=== PATIENT | female | born 1965 | race Two or more races ===

== ENCOUNTER → 2024-10-25 | Outpatient (CLI) | payer BC, SELFPAY | END | disposition home or self-care (01) | LOC: SLDO 15:47 | PROVIDERS: PCP Family Medicine; Referring Provider Family Medicine; Visit Provider Family Medicine | DX: N39.0 Urinary tract infection, site not specified (principal) | CPT/HCPCS: 87077; 87086; 87186 ==

== ENCOUNTER → 2024-11-15 | Outpatient (CLI) | payer BC, SELFPAY ==
--- NOTE | 2024-11-15 13:00 | XR_ITS ---
Examination: Breast ultrasound complete, bilateral Date and time of exam: November 15, 2024 1314 hours INDICATIONS: Nipple discharge beginning 2 years ago Technique: Real-time grayscale ultrasonographic imaging bilateral breasts, including all 4 quadrants as well as nipple retroareolar and axillary regions. Findings: Sonographic images right breast No cystic or solid mass Sonographic images left breast 1:00 oval mass with cystic change 13 x 6 x 12 mm Bilateral breast implants which appear intact IMPRESSION: BI-RADS Category 3: Probably benign findings One additional 6 month left breast sonogram follow-up is needed to document stability of 1:00 oval mass with cystic change in the left breast
[2024-11-16 17:44] LABS: Follicle Stimulating Hormone 10.51 mIU/mL (See Note)
[2024-11-22 06:52] LABS: Estradiol, Ultrasensitive* 61 pg/mL; Testosterone,Total* 48 ng/dL (2-45)
== END | disposition home or self-care (01) ==
LOC: CDIM 12:56 → COPL 12:57
PROVIDERS: PCP Family Medicine; Referring Provider Surgery; Visit Provider Radiology Diagnostic Radiology
DX: N63.13 Unspecified lump in the right breast, lower outer quadrant (principal); R92.333 Mammographic heterogeneous density, bilateral breasts; N95.1 Menopausal and female climacteric states
CPT/HCPCS: 36415; 76641; 82670; 83001; 84403

== ENCOUNTER → 2024-12-07 | Outpatient (CLI) | payer BC, SELFPAY ==
--- NOTE | 2024-12-07 13:44 | XR_ITS ---
Examination: Abdomen AP single view Technique: AP portable supine abdomen, single view Exam date and time: December 07, 2024 1410 hours INDICATIONS: Right lower abdominal pain beginning 4 years ago. FINDINGS: Moderate to large amounts of stool throughout the colon No obstruction Right abdomen surgical clips No free air IMPRESSION: Moderate to large amounts of stool throughout the colon
[2024-12-07 15:21] LABS: Collection Type, Urine Clean Catch
[2024-12-07 15:42] LABS: Basophils % (Auto) 1 % (0-2.5); Eosinophils # (Auto) 0.1 Thou/mm3 (0.0-0.5); Eosinophils % (Auto) 1 % (0-10); Immature Granulocytes % (Auto) 1 % (0-0); Immature Granulocytes Auto 0.04 Thou/mm3 (0.00-0.00); Lymphocytes # (Auto) 3.2 Thou/mm3 (1.0-4.8); Lymphocytes % (Auto) 43 % (10-50); Mean Corpuscular Hemoglobin 31.4 pg (25.0-35.0); Mean Corpuscular Volume 90 fL (80-100); Monocytes # (Auto) 0.6 Thou/mm3 (0.0-0.8); Monocytes % (Auto) 8 % (0-12); Neutrophils # (Auto) 3.6 Thou/mm3 (1.8-7.7); Neutrophils % (Auto) 47 % (37-80); Nucleated Red Blood Cell % 0 /100 WBC (0); Platelet Count 268 Thou/mm3 (140-440); RDW Standard Deviation 39.4 fL (36.4-46.3); Red Blood Count 4.46 Miln/mm3 (4.00-5.20); White Blood Count 7.6 Thou/mm3 (3.6-11.0)
[2024-12-07 15:51] LABS: Bacteria,Urine 3+; Bilirubin,Urine Negative (Negative); Blood,Urine Negative (Negative); Clarity,Urine Turbid (Clear/Hazy); Color,Urine Yellow (Lt Yel-Yel); Glucose, Urine Negative (Negative); Ketones,Urine 1+ (Negative); Leukocyte Esterase,Urine Negative (Negative); Nitrite,Urine Positive (Negative); Protein,Urine Trace (Neg - Trace); RBC,Urine 5 /hpf (0-3); Specific Gravity,Urine 1.028 (1.001-1.035); Squamous Epithelial Cell,Urine 6 /hpf (0-5); Urobilinogen,Urine Negative mg/dL (0.0-1.0); WBC,Urine 2 /hpf (0-5)
[2024-12-07 15:55] LABS: Alanine Aminotransferase 34 U/L (10-49); Albumin, Serum 4.8 gm/dL (3.5-5.0); Albumin/Globulin Ratio 2.2 (1.2-2.2); Alkaline Phosphatase 65 U/L (46-116); Amylase 68 U/L (30-118); Anion Gap 8 (7-16); Aspartate Amino Transferase 24 U/L (0-34); BUN/Creatinine Ratio 12 Ratio (12-20); Bilirubin,Total 1.7 mg/dL (0.3-1.2); Blood Urea Nitrogen 7 mg/dL (9-23); Calcium 9.8 mg/dL (8.3-10.6); Calcium (Corrected) 9.8 mg/dL (8.5-10.1); Carbon Dioxide 27.9 mMol/L (20.0-31.0); Chloride 101 mMol/L (98-107); Creatinine (Component) 0.6 mg/dL (0.6-1.3); Globulin 2.2 gm/dL (2.3-3.5); Glucose 120 mg/dL (74-106); Lipase 64 U/L (12-53); Osmolality,Calculated 272 (275-295); Sodium 137 mMol/L (136-145); eGFR > 60 See Note
== END | disposition home or self-care (01) ==
LOC: CDIM 13:31 → COPL 14:32
PROVIDERS: PCP Family Medicine; Referring Provider Specialist; Visit Provider Radiology Diagnostic Radiology
DX: K59.00 Constipation, unspecified (principal); K58.8 Other irritable bowel syndrome; R93.5 Abnormal findings on diagnostic imaging of other abdominal regions, including retroperitoneum
CPT/HCPCS: 36415; 74018; 80053; 81001; 82150; 83690; 85025

== ENCOUNTER → 2024-12-20 | Outpatient (CLI) | payer BC, SELFPAY ==
[2024-12-20 10:25] LABS: Basophils % (Auto) 1 % (0-2.5); Eosinophils # (Auto) 0.1 Thou/mm3 (0.0-0.5); Eosinophils % (Auto) 1 % (0-10); Hematocrit 39.9 % (36.0-46.0); Hemoglobin 14.1 g/dL (12.0-16.0); Immature Granulocytes % (Auto) 1 % (0-0); Immature Granulocytes Auto 0.04 Thou/mm3 (0.00-0.00); Lymphocytes # (Auto) 2.8 Thou/mm3 (1.0-4.8); Lymphocytes % (Auto) 34 % (10-50); Mean Corpuscular HGB Conc 35.3 g/dl (31.0-37.0); Mean Corpuscular Hemoglobin 31.8 pg (25.0-35.0); Mean Corpuscular Volume 90 fL (80-100); Monocytes # (Auto) 0.6 Thou/mm3 (0.0-0.8); Monocytes % (Auto) 7 % (0-12); Neutrophils # (Auto) 4.7 Thou/mm3 (1.8-7.7); Neutrophils % (Auto) 57 % (37-80); Nucleated Red Blood Cell % 0 /100 WBC (0); Platelet Count 263 Thou/mm3 (140-440); RDW Standard Deviation 38.9 fL (36.4-46.3); Red Blood Count 4.43 Miln/mm3 (4.00-5.20); White Blood Count 8.3 Thou/mm3 (3.6-11.0)
[2024-12-20 10:29] LABS: Alanine Aminotransferase 31 U/L (10-49); Albumin, Serum 4.5 gm/dL (3.5-5.0); Alkaline Phosphatase 65 U/L (46-116); Anion Gap 8 (7-16); Aspartate Amino Transferase 25 U/L (0-34); BUN/Creatinine Ratio 15 Ratio (12-20); Bilirubin,Total 1.3 mg/dL (0.3-1.2); Blood Urea Nitrogen 9 mg/dL (9-23); Calcium 9.9 mg/dL (8.3-10.6); Calcium (Corrected) 9.9 mg/dL (8.5-10.1); Carbon Dioxide 27.6 mMol/L (20.0-31.0); Cardiac Risk Estimate 2.9 RATIO (3.7-5.6); Chloride 103 mMol/L (98-107); Cholesterol 140 mg/dL (132-200); Creatinine (Component) 0.6 mg/dL (0.6-1.3); Globulin 2.3 gm/dL (2.3-3.5); Glucose 121 mg/dL (74-106); Glucose Estimated Average 140 mg/dL (80-131); HDL Cholesterol 49 mg/dL (40-60); Hemoglobin A1C 6.5 % Hgb (4.8-6.0); LDL Cholesterol,Calculated 58 mg/dL (0-130); Osmolality,Calculated 277 (275-295); Potassium 4.2 mMol/L (3.4-5.1); Sodium 139 mMol/L (136-145); Total Protein 6.8 gm/dL (5.7-8.2); Triglycerides 167 mg/dL (30-150); eGFR > 60 See Note
[2024-12-20 10:32] LABS: Creatinine MALB Rnd Ur 87 mg/dL (30-125); Microalbumin Creat Ratio 3 mg/gCrea (<30); Microalbumin, Random Urine 3 mg/L (0-300)
== END | disposition home or self-care (01) ==
PROVIDERS: PCP Family Medicine; Referring Provider Internal Medicine Endocrinology, Diabetes & Metabolism; Visit Provider Internal Medicine Endocrinology, Diabetes & Metabolism
DX: E11.9 Type 2 diabetes mellitus without complications (principal)
CPT/HCPCS: 36415; 80053; 80061; 82043; 82570; 83036; 85025

== ENCOUNTER → 2025-03-07 | Outpatient (CLI) | payer BC, SELFPAY ==
[2025-03-07 11:36] LABS: C-Reactive Protein < 0.5 mg/dL (0.0-0.9); Creatine Kinase 67 U/L (34-171)
[2025-03-07 12:23] LABS: Sed Rate (ESR) < 1 mm/hr (0-30)
== END | disposition home or self-care (01) ==
LOC: COPL 10:37
PROVIDERS: PCP Family Medicine; Referring Provider Psychiatry & Neurology Neurology; Visit Provider Psychiatry & Neurology Neurology
DX: M31.5 Giant cell arteritis with polymyalgia rheumatica (principal)
CPT/HCPCS: 36415; 82550; 85652; 86140

== ENCOUNTER → 2025-04-18 | Outpatient (CLI) | payer BC, SELFPAY ==
--- NOTE | 2025-04-18 10:00 | XR_ITS ---
Examination: Breast ultrasound, unilateral, left complete Date and time of exam: April 18, 2025 0927 hours INDICATIONS: Left breast sonogram November 15, 2024 1:00 nodule with cystic change 13 x 6 x 12 mm Technique: Real-time larsen scale ultrasonographic imaging performed left breast including all 4 quadrants as well as nipple retroareolar and axillary region. Findings: 1:00 probable glandular tissue 11 x 5 x 9 mm IMPRESSION: BI-RADS Category 3: Probably benign findings One additional 6 month left breast sonogram follow-up is needed
== END | disposition home or self-care (01) ==
PROVIDERS: PCP Family Medicine; Referring Provider Surgery; Visit Provider Surgery
DX: N63.21 Unspecified lump in the left breast, upper outer quadrant (principal)
CPT/HCPCS: 76641

== ENCOUNTER → 2025-07-04 | Outpatient (CLI) | payer BC, SELFPAY ==
[2025-07-04 10:52] LABS: Creatinine MALB Rnd Ur 98 mg/dL (30-125); Microalbumin, Random Urine < 3 mg/L (0-300)
[2025-07-04 10:54] LABS: Alanine Aminotransferase 24 U/L (10-49); Albumin, Serum 4.5 gm/dL (3.5-5.0); Albumin/Globulin Ratio 2.1 (1.2-2.2); Alkaline Phosphatase 70 U/L (46-116); Anion Gap 8 (7-16); Aspartate Amino Transferase 21 U/L (0-34); BUN/Creatinine Ratio 9 Ratio (12-20); Bilirubin,Total 1.4 mg/dL (0.3-1.2); Blood Urea Nitrogen 7 mg/dL (9-23); Calcium 10.3 mg/dL (8.3-10.6); Calcium (Corrected) 10.3 mg/dL (8.5-10.1); Carbon Dioxide 28.2 mMol/L (20.0-31.0); Cardiac Risk Estimate 3.0 RATIO (3.7-5.6); Chloride 103 mMol/L (98-107); Cholesterol 140 mg/dL (132-200); Creatinine (Component) 0.8 mg/dL (0.6-1.3); Globulin 2.1 gm/dL (2.3-3.5); Glucose 124 mg/dL (74-106); HDL Cholesterol 46 mg/dL (40-60); LDL Cholesterol,Calculated 67 mg/dL (0-130); Osmolality,Calculated 276 (275-295); Potassium 4.2 mMol/L (3.4-5.1); Sodium 139 mMol/L (136-145); Total Protein 6.6 gm/dL (5.7-8.2); Triglycerides 134 mg/dL (30-150); eGFR > 60 See Note
[2025-07-04 11:01] LABS: Glucose Estimated Average 151 mg/dL (80-131); Hemoglobin A1C 6.9 % Hgb (4.8-6.0)
[2025-07-06 06:34] LABS: Prolactin* 5.0 ng/mL
== END | disposition home or self-care (01) ==
LOC: COPL 09:10
PROVIDERS: PCP Family Medicine; Referring Provider Family Medicine; Visit Provider Family Medicine
DX: E11.65 Type 2 diabetes mellitus with hyperglycemia (principal); E78.1 Pure hyperglyceridemia; N64.3 Galactorrhea not associated with childbirth
CPT/HCPCS: 36415; 80053; 80061; 82043; 82570; 83036; 84146